=== PATIENT | female | born 2000 | race Caucasian/White ===

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

== ENCOUNTER 2018-05-04 12:56 | Emergency (ER) | payer BC ==
--- OUTSIDE RECORDS SUMMARY | 2018-05-04 13:14 | XMS REPORT ---
:2000 External Reference #:[id number] Demographics Home Phone [phone] Preferred Language Cypriot Marital Status Declined to Specify/Unknown Orthodoxy Affiliation Unknown Race White Ethnic Group Declined to Specify/Unknown Author Organization [facility] Address [address] [place] [address] Phone [phone] Care Team Providers Name Role Phone Rey Rodriguez M.D. Care Team Information Rib Chopper Unavailable Payers Type Date Identification Numbers Payment Provider Subscriber Health Maintenance Policy Number: BC/BS Ppo [employer] [facility] ([facility] [place] [id number] PayID: [id number] [address] [address] [place] [address] Problems Description No Information Family History Date Family Member(s) Problem(s) Comments Mother Ankylosing Spondylitis Social History Type Date Description Comments ETOH Use Occasionally consumes alcohol Smoking Patient has never smoked Recreational Drug Use Denies Drug Use Allergies, Adverse Reactions, Alerts Date Description Reaction Status Severity Comments 04/21/2018 NKDA active Medications Medication Date Status Form Strength Qnty SIG Indications Ordering Provider No Active 04/21/2018 Active Gilberto Rodriguez M.D. Vital Signs Date Vital Result Comment 04/21/2018 BP Systolic 124 mmHg BP Diastolic 70 mmHg Heart Rate 68 /min Height 66 inches 5'6" Weight 151.00 lb BMI (Body Mass Index) 24.4 kg/m2 Results Description No Information Procedures Description No Information Encounters Type Date Location Provider CPT E/M Dx Office Visit 04/21/2018 9:00a [place] Office Rey Rodriguez, [id number] Z00.00 Nisa R10.9 Plan of Care 04/21/2018 - Rey Rodriguez M.D.Z00.00 Encntr for general adult medical exam w/o abnormal findingsComments:Doing well overal. UTD on immunizations. 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 As she has a history of an autoimmune condition will check celiac panel and TSH to rule out another autoimmune process. Recommended regualr fiber intake and peppermint oil to see if this helps symptoms. Will call with lab results. Follow-up as needed.
[2018-05-04 13:21] VITALS: BP 113/69
--- NOTE | 2018-05-04 13:29 | UC ---
FLU HPI - HPI Summary HPI Summary: 18-year-old female presents with onset of fever, body aches, nausea, and some loose stools 4 days ago. States this morning she also developed a mild sore throat. States fever has been as high as 102 F. Last documented fever was this morning of 101.8 F. Reports 3 episodes of loose stool over the last 4 days. Last episode was this morning. Symptoms are associated with some fatigue, general malaise, and urinary frequency. Denies headache, photophobia, visual disturbances, nasal congestion, nasal drainage, sinus pain or pressure, ear pain or pressure, chest pain, shortness of breath, cough, abdominal pain, vomiting, dysuria, urgency, or hematuria. Last menstrual period was approximately 3 weeks ago. She is sexually active with a single male partner. States uses condoms consistently. - History of Current Complaint Chief Complaint: UCRespiratory Stated Complaint: FLE SYMPTOMS Time Seen by Provider: 05/04/18 13:12 Hx Obtained From: Patient Hx Last Menstrual Period: "about 3 weeks ago" Onset/Duration: Gradual Onset Severity Currently: Mild Severity Initially: Mild Pain Intensity: 5 Associated Signs & Symptoms: Positive: Fever, T Max - 102 F, Myalgia, Sore Throat, Diarrhea. Negative: Cough, Nasal Congestion, Headache, Vomiting - Allergy/Home Medications Allergies/Adverse Reactions: Allergies Allergy/AdvReac Type Severity Reaction Status Date / Time No Known Allergies Allergy Verified 05/04/18 13:14 PMH/Surg Hx/FS Hx/Imm Hx - Additional Past Medical History Additional PMH: Noncontributory Previously Healthy: Yes - Surgical History Surgical History: None - Family History Known Family History: Positive: Cardiac Disease Family History: Breast cancer - Social History Occupation: Student Lives: Dormitory/Roommates Alcohol Use: Weekly Alcohol Amount: 1/week Substance Use Type: None Smoking Status (MU): Never Smoked Tobacco - Immunization History Most Recent Tetanus Shot: UTD Review of Systems Constitutional: Fever, Chills, Fatigue Skin: Negative Eyes: Negative ENT: Sore Throat Respiratory: Negative Cardiovascular: Negative Gastrointestinal: Nausea Genitourinary: Frequency Is Patient Immunocompromised?: No All Other Systems Reviewed And Are Negative: Yes Physical Exam Triage Information Reviewed: Yes Appearance: Well-Appearing, No Pain Distress, Well-Nourished Vital Signs: Initial Vital Signs Temp 97.8 F 05/04/18 13:14 Pulse 105 09/06/18 13:14 Resp 16 05/04/18 13:14 BP 113/69 05/04/18 13:14 Pulse Ox 99 05/04/18 13:14 Vital Signs Reviewed: Yes Eyes: Positive: Conjunctiva Clear. Negative: Discharge ENT: Positive: Pharyngeal erythema - Mild, TMs normal, Uvula midline. Negative : Nasal congestion, Nasal drainage, Tonsillar swelling, Tonsillar exudate, Trismus, Muffled voice, Sinus tenderness Neck: Positive: Supple, Nontender, No Lymphadenopathy Respiratory: Positive: Lungs clear, Normal breath sounds, No respiratory distress Cardiovascular: Positive: RRR, No Murmur Abdomen Description: Positive: No Organomegaly, Soft, Other: - Mild generalized abdominal tenderness. Negative: CVA Tenderness (R), CVA Tenderness (L), Distended, Guarding Bowel Sounds: Positive: Present Neurological: Positive: Alert Skin Exam: Normal Diagnostics - Laboratory Diagnostic Studies Completed/Ordered: POC UA Trace leukocyte esterase, 1+ Protein, 1+ blood, 1+ ketones, Urine negative. Flu Course/Dx - Course Course Of Treatment: 18-year-old female with 4 day history of fever, fatigue, general malaise, nausea, and some loose stool. States yesterday developed some sore throat as well. Physical exam was unremarkable except for some mild pharyngeal erythema and mild generalized abdominal tenderness. Urinalysis showed some trace leukocyte esterase, 2+ blood, 1+ ketones, and 1+ protein. Urine was negative. Her history and physical are very suggestive of a viral illness however with her UA findings will treat with a 3 day course of Bactrim DS twice a day pending urine culture results. Patient to follow up with primary care if symptoms persist. Warning symptoms were reviewed with the patient that would require immediate medical attention. Patient verbalizes understanding and agrees with plan of care. - Differential Dx/Diagnosis Provider Diagnoses: Viral syndrome, acute urinary cystits with hematuria Discharge - Sign-Out/Discharge Documenting (check all that apply): Patient Departure All imaging exams completed and their final reports reviewed: No Studies - Discharge Plan Condition: Stable Disposition: HOME Prescriptions: Sulfamethox/Trimethoprim DS* [Bactrim DS 800/160 TAB*] 1 tab PO BID #6 tab Patient Education Materials: Urinary Tract Infection in Women (ED), Viral Syndrome (ED) Referrals: No Primary Care Phys,NOPCP [Primary Care Provider] - [facility] [place]Outside] - If Needed Additional Instructions: Your symptoms are likely from a viral infection however the urine test performed in the clinic today showed a possible urinary tract infection. I have ordered a urine culture to be performed. We will treat you for a urinary tract infection pending the urine culture results. Take Bactrim DS 1 tab twice a day for 3 days. Drink plenty of fluids to avoid dehydration especially if you are running any fever. Use salt water gargles several times a day for your sore throat. Take over the counter acetaminophen (Tylenol) or ibuprofen (Advil, Motrin) according to directions as needed for pain or fever. You may also use Chloraseptic spray or Cepacol lonzenges according to directions which contain a numbing medication and can provide some temporary relief from your sore throat. Follow up with primary care if symptoms persist for more than 10 days. I have provided you with the number for the [facility] to help you arrange for follow up or you may contact one of the local primary care providers in the [place] area from the list provided. Seek immediate medical attention in the emergency room if you have fever greater than 100.5 F despite taking acetaminophen or ibuprofen, severe headache , are unable to swallow or develop drooling, are unable to open your mouth fully , are unable to eat or drink, have severe abdominal pain, persistent vomiting, chest pain, difficulty breathing, or have any worsening of symptoms. - Billing Disposition and Condition Condition: STABLE Disposition: Home
== END 2018-05-04 14:50 | disposition home or self-care (01) ==
LOC: UCCORT 12:56
DX: B34.9 Viral infection, unspecified (principal); N30.01 Acute cystitis with hematuria
CPT/HCPCS: 81003; 84702; 87086; 99212; G0463

== ENCOUNTER 2018-05-05 12:31 | Emergency (ER) | payer BC ==
[2018-05-05 13:08] VITALS: BP 108/63
--- NOTE | 2018-05-05 13:31 | ED ---
Headache - HPI Summary HPI Summary: 18 yr old female with the complaint of headache, neck stiffness, light sensitivity. Fevers coming and going for three days up to 102. She has had vomiting almost every hour as well the past day. The patient reports she was seen here yesterday and told she had a UTI - History Of Current Complaint Chief Complaint: UCGeneralIllness Stated Complaint: HEADACHE, VOMITING - RECHECK Time Seen by Provider: 05/05/18 13:21 Hx Last Menstrual Period: 3 weeks ago - Allergies/Home Medications Allergies/Adverse Reactions: Allergies Allergy/AdvReac Type Severity Reaction Status Date / Time No Known Allergies Allergy Verified 05/05/18 13:01 Home Medications: Home Medications Naproxen Sodium [Aleve] 220 mg PO BID PRN 05/05/18 [History Confirmed 05/05/18] PMH/Surg Hx/FS Hx/Imm Hx Infectious Disease History: No Infectious Disease History: Denies: Traveled Outside the [place] in Last 30 Days - Family History Known Family History: Positive: None - neg for HTN, Cardiac Disease Family History: Breast cancer - Social History Occupation: Student Alcohol Use: Weekly Alcohol Amount: 1/week Substance Use Type: Reports: None Smoking Status (MU): Never Smoked Tobacco Review of Systems Positive: Fever, Chills, Fatigue Positive: Vomiting, Nausea Positive: Headache All Other Systems Reviewed And Are Negative: Yes Physical Exam Triage Information Reviewed: Yes Vital Signs On Initial Exam: Initial Vitals Temp Pulse Resp BP Pulse Ox 97.7 F 83 14 108/63 100 05/05/18 13:02 05/05/18 13:02 05/05/18 13:02 05/05/18 13:02 05/05/18 13:02 Vital Signs Reviewed: Yes Appearance: Positive: Well-Appearing, No Pain Distress Skin: Positive: Warm, Skin Color Reflects Adequate Perfusion Head/Face: Positive: Normal Head/Face Inspection Eyes: Positive: EOMI, BEATRIZ, Other: - no photophobia with shining light in eyes ENT: Positive: Pharyngeal erythema, TMs normal Neck: Positive: Supple, Nontender Respiratory/Lung Sounds: Positive: Clear to Auscultation, Breath Sounds Present Cardiovascular: Positive: RRR. Negative: Murmur Abdomen Description: Negative: Distended Musculoskeletal: Positive: Strength/ROM Intact Neurological: Positive: Sensory/Motor Intact, Alert, Oriented to Person Place, Time, CN Intact II-III, Normal Gait, Speech Normal Psychiatric: Positive: Normal - [place] Coma Scale Best Eye Response: 4 - Spontaneous Best Motor Response: 6 - Obeys Commands Best Verbal Response: 5 - Oriented Coma Scale Total: 15 Diagnostics - Vital Signs Vital Signs Temp Pulse Resp BP Pulse Ox 05/05/18 13:02 97.7 F 83 14 108/63 100 - Laboratory Lab Statement: Any lab studies that have been ordered have been reviewed, and results considered in the medical decision making process. 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 She is going to the ER for further eval. She declines ambulance and states she is able to get there with her boyfriend. - Diagnoses Provider Diagnoses: Headache, Fever, Vomiting Discharge - Sign-Out/Discharge Documenting (check all that apply): Patient Departure All imaging exams completed and their final reports reviewed: No Studies - Discharge Plan Condition: Good Disposition: HOME-RECOMMEND TO ED Patient Education Materials: Acute Headache (ED) Referrals: No Primary Care Phys,NOPCP [Primary Care Provider] - Additional Instructions: You need to go to the ER for further work up of your fever, headache, neck stiffness, and vomiting. Do not delay going. You have declined ambulance and state you are going there. - Billing Disposition and Condition Condition: GOOD Disposition: Home-Recommend to ED
== END 2018-05-05 13:46 | disposition home health service (06) ==
LOC: UCCORT 12:31
DX: R51 Headache (principal); R50.9 Fever, unspecified; R11.10 Vomiting, unspecified
CPT/HCPCS: 99212; G0463